=== PATIENT | male | born 1950 | race Caucasian/White ===

== ENCOUNTER 2022-02-22 18:05 | Emergency (ER) | payer OTHER, MEDICAID ==
[~2022-02-22] VITALS: Ht 162.6 cm; Wt 53.0 kg
[2022-02-23] VITALS: BP 152/61
== END 2022-02-23 | disposition home or self-care (01) ==
LOC: ER 18:05
DX: M54.50 Low back pain, unspecified (principal); W01.0XXA Fall on same level from slipping, tripping and stumbling without subsequent striking against object, initial encounter; Y93.89 Activity, other specified; Y92.89 Other specified places as the place of occurrence of the external cause; Y99.8 Other external cause status; E11.9 Type 2 diabetes mellitus without complications; I10 Essential (primary) hypertension; Z86.73 Personal history of transient ischemic attack (TIA), and cerebral infarction without residual deficits
CPT/HCPCS: 72131; 72192; 99284

== ENCOUNTER 2022-03-28 16:17 | Emergency (ER) | payer OTHER, MEDICAID ==
[~2022-03-28] VITALS: Ht 167.6 cm; Wt 50.0 kg
[2022-03-28 17:11] LABS: BASOPHILS % 0.5 % (0.0-2.0); EOSINOPHILS % 1.4 % (0.0-5.0); HEMATOCRIT. 39.5 % (42.0-52.0); HEMOGLOBIN. 13.2 g/dL (14.0-18.0); LYMPHOCYTES % 31.5 % (20.0-50.0); MEAN CORPUSCULAR HEMOGLOBIN 30.8 pg (28.0-32.0); MEAN CORPUSCULAR VOLUME 92.3 fL (80.0-94.0); MEAN PLATELET VOLUME 10.6 fl (7.4-10.4); MONOCYTES % 7.5 % (2.0-8.0); NEUTROPHILS % 59.1 % (40.0-76.0); PLATELET 169 x1000/uL (130-400); RED BLOOD CELL COUNT 4.28 mill/uL (4.7-6.1); RED CELL DISTRIBUTION WIDTH 12.8 % (11.6-14.6)
[2022-03-28 17:16] LABS: CHLORIDE 104 mEq/L (98-107)
[2022-03-28 17:27] LABS: PHOSPHORUS 2.7 mg/dL (2.5-4.9)
[2022-03-28] MEDS ORDERED: ACETAMINOPHEN 325MG TABLET PO NR (18:17)
[2022-03-28] MEDS ORDERED: ACET-2708 MT (19:23)
[2022-03-28 23:59] VITALS: BP 165/71
== END 2022-03-29 00:01 ==
LOC: ER 16:17
DX: M25.551 Pain in right hip (principal); E11.65 Type 2 diabetes mellitus with hyperglycemia; I11.9 Hypertensive heart disease without heart failure; F03.90 Unspecified dementia, unspecified severity, without behavioral disturbance, psychotic disturbance, mood disturbance, and anxiety; Z95.1 Presence of aortocoronary bypass graft; Z86.73 Personal history of transient ischemic attack (TIA), and cerebral infarction without residual deficits; Z88.2 Allergy status to sulfonamides; W01.0XXA Fall on same level from slipping, tripping and stumbling without subsequent striking against object, initial encounter; Z91.81 History of falling; Y93.89 Activity, other specified; Y92.018 Other place in single-family (private) house as the place of occurrence of the external cause
CPT/HCPCS: 36415; 71045; 73502; 80053; 83735; 83880; 84100; 84484; 85025; 93005; 99285

== ENCOUNTER 2023-02-12 22:37 | Emergency (ER) | payer OTHER, MEDICAID ==
[~2023-02-12] VITALS: Ht 162.6 cm; Wt 62.0 kg
[~2023-02-12 22:37] MED LIST: ACET-2708 MT
[2023-02-12 23:17] LABS: BASOPHILS % 0.3 % (0.0-2.0); EOSINOPHILS % 1.9 % (0.0-5.0); HEMOGLOBIN. 12.9 g/dL (14.0-18.0); LYMPHOCYTES % 37.2 % (20.0-50.0); MEAN CORPUSCULAR HEMOGLOBIN 29.4 pg (28.0-32.0); MEAN CORPUSCULAR VOLUME 88.7 fL (80.0-94.0); MEAN PLATELET VOLUME 10.6 fl (7.4-10.4); MONOCYTES % 9.8 % (2.0-8.0); NEUTROPHILS % 50.8 % (40.0-76.0); PLATELET 134 x1000/uL (130-400); RED BLOOD CELL COUNT 4.39 mill/uL (4.7-6.1); RED CELL DISTRIBUTION WIDTH 13.7 % (11.6-14.6)
[2023-02-12 23:24] LABS: CHLORIDE 105 mEq/L (98-107)
[2023-02-13 10:30] VITALS: BP 147/82
== END 2023-02-13 11:09 | disposition short-term general hospital (02) ==
LOC: ER 22:37
DX: R07.89 Other chest pain (principal); E11.9 Type 2 diabetes mellitus without complications; I10 Essential (primary) hypertension; Z86.73 Personal history of transient ischemic attack (TIA), and cerebral infarction without residual deficits
CPT/HCPCS: 36415; 71045; 80053; 83880; 84484; 85025; 85379; 93005; 99285

== ENCOUNTER 2024-02-21 04:17 | Emergency (ER) | payer OTHER, MEDICAID ==
[~2024-02-21] VITALS: Ht 167.6 cm; Wt 70.0 kg
[2024-02-21 04:37] VITALS: O2SAT 98
[2024-02-21 10:30] VITALS: BP 157/84; PULSE 72; RESP 14
[2024-02-21] MEDS: BACITRACIN/POLYMYXIN B SULFATE OINT 15GM TOP ONE (10:47)
== END 2024-02-21 11:10 | disposition home or self-care (01) ==
LOC: ER 04:17
DX: S50.312A Abrasion of left elbow, initial encounter (principal); J45.909 Unspecified asthma, uncomplicated; E11.9 Type 2 diabetes mellitus without complications; I10 Essential (primary) hypertension; F19.90 Other psychoactive substance use, unspecified, uncomplicated; Z86.73 Personal history of transient ischemic attack (TIA), and cerebral infarction without residual deficits; Z98.890 Other specified postprocedural states; Z88.2 Allergy status to sulfonamides; W19.XXXA Unspecified fall, initial encounter; Y93.89 Activity, other specified; Y92.89 Other specified places as the place of occurrence of the external cause; Y99.8 Other external cause status
CPT/HCPCS: 73030; 73070; 73090; 73100; 73120; 99285